=== PATIENT | male | born 2005 | race Hispanic/Latino ===

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

== ENCOUNTER → 2023-05-25 | Outpatient (CLI) | payer OTHER | LOC: US 10:32 | PROVIDERS: ATTEND Urology | DX: N45.1 Epididymitis (principal); E29.1 Testicular hypofunction; N43.40 Spermatocele of epididymis, unspecified | CPT/HCPCS: 76870; 93976 ==